=== PATIENT | male | born 1945 | race Caucasian/White ===

== ENCOUNTER 2019-02-06 08:09 | Emergency (ER) | payer MEDICARE ==
[~2019-02-06] VITALS: Ht 177.8 cm; Wt 68.2 kg
[~2019-02-06 08:09] MED LIST: ASPI81TA44 PO; HYT1T PO; METF1000 PO; VERA240T PO
[2019-02-06 10:59] LABS: CLARITY,URINE TURBID (Clear); COLOR,URINE RED (Yellow); UA COLLECTION TYPE URINAL
[2019-02-06 11:06] LABS: RBC,URINE TNTC /HPF (0-2); WBC,URINE TNTC /HPF (0-4)
[2019-02-06 11:09] LABS: MUCUS STRANDS MODERATE /LPF (Neg); SQUAMOUS EPITHELIAL CELL,UR FEW /LPF (FEW); TRANSITIONAL EPI CELLS,URINE FEW /HPF
[2019-02-06 11:09] LABS: BASOPHILS % (AUTO) 0.1 % (0-1); EOSINOPHILS % (AUTO) 0.1 % (0-6); HEMATOCRIT 38.9 % (42.0-52.0); HEMOGLOBIN 13.2 g/dl (14.0-17.9); LYMPHOCYTES # (AUTO) 0.7 X10'3 (1.1-4.8); LYMPHOCYTES % (AUTO) 5.9 % (21-51); MEAN CORPUSCULAR HEMOGLOBIN 31.7 PG (27.0-31.0); MEAN CORPUSCULAR HGB CONC 33.8 g/dL (33.0-36.5); MEAN CORPUSCULAR VOLUME 93.7 FL (78-98); MEAN PLATELET VOLUME 9.1 FL (7.4-10.4); MONOCYTES % (AUTO) 8.4 % (2-12); NEUTROPHILS # (AUTO) 10.6 X10'3 (1.8-7.7); NEUTROPHILS % (AUTO) 85.5 % (42-75); PLATELET COUNT 147 X10'3 (140-440); RED BLOOD COUNT 4.15 X10'6 (4.70-6.10); RED CELL DISTRIBUTION WIDTH 16.2 % (11.5-14.5); WHITE BLOOD COUNT 12.4 X10'3 (4.5-11.0)
[2019-02-06 11:11] VITALS: BP 145/73
[2019-02-06 11:12] LABS: BACTERIA,URINE 1+ /HPF (Neg)
[2019-02-06 11:25] LABS: ALANINE AMINOTRANSFERASE 35 U/L (12-78); ALBUMIN 3.3 G/DL (3.4-5.0); ALKALINE PHOSPHATASE 96 IU/L (46-116); ANION GAP 7 (8-16); ASPARTATE AMINO TRANSFERASE 22 U/L (10-37); BILIRUBIN,TOTAL 0.7 MG/DL (0.1-1.0); BLOOD UREA NITROGEN 11 MG/DL (7-18); BUN/CREATININE RATIO 16.2 (5.4-32.0); CALCIUM 8.8 MG/DL (8.5-10.1); CHLORIDE 104 MMOL/L (99-107); CREATININE 0.68 MG/DL (0.60-1.10); GLUCOSE 186 MG/DL (70-104); POTASSIUM 3.3 MMOL/L (3.5-5.1); SODIUM 144 MMOL/L (135-145); TOTAL CARBON DIOXIDE 33.3 MMOL/L (24-32); TOTAL PROTEIN 6.5 G/DL (6.4-8.2); eGFR > 90 ML/MIN
--- NOTE | 2019-02-06 11:45 | NUR ---
Catheter and leg bag placed by Caty Styles RN
[2019-02-06] MEDS ORDERED: CEPH500C5 PO (12:07)
[2019-02-06] MEDS ORDERED: cephalexin 500mg capsule PO ONE (12:15)
== END 2019-02-06 12:20 | disposition home or self-care (01) ==
LOC: ER 08:10
DX: R33.9 Retention of urine, unspecified (principal); N39.0 Urinary tract infection, site not specified; R39.11 Hesitancy of micturition; I48.91 Unspecified atrial fibrillation; I10 Essential (primary) hypertension; E11.9 Type 2 diabetes mellitus without complications; F17.200 Nicotine dependence, unspecified, uncomplicated; Z88.2 Allergy status to sulfonamides; Z79.899 Other long term (current) drug therapy; Z79.82 Long term (current) use of aspirin
CPT/HCPCS: 36415; 51702; 80053; 81001; 85025; 87077; 87088; 87186; 99284

== ENCOUNTER 2021-05-25 07:34 | Emergency (ER) | payer MEDICARE ==
[~2021-05-25] VITALS: Ht 177.8 cm; Wt 63.6 kg
[2021-05-25] MEDS ORDERED: normal saline 1000ML IV soln IVB ONE (08:00)
[2021-05-25] MEDS ORDERED: FLO0.4C PO (08:50)
[2021-05-25] MEDS ORDERED: FINA5TAB11 PO (08:50)
[2021-05-25] MEDS ORDERED: LISI5TAB22 PO (08:50)
[2021-05-25] MEDS ORDERED: APIX5TAB3 PO (08:50)
[2021-05-25] MEDS ORDERED: ATEN-27 PO (08:50)
[2021-05-25] MEDS ORDERED: ATOR10TA87 PO (08:50)
[2021-05-25 08:57] LABS: CLARITY,URINE CLOUDY (Clear); COLOR,URINE YELLOW (Yellow); GLUCOSE, URINE NEGATIVE (Neg); KETONES,URINE NEGATIVE (Neg); LEUKOCYTE ESTERASE ,URINE SMALL (Neg); NITRITES, URINE POSITIVE (Neg); OCCULT BLOOD,URINE NEGATIVE (Neg); PH,URINE 5.5 (4.8-8.0); PROTEIN,URINE NEGATIVE (Neg); UROBILINOGEN,URINE 0.2 E.U/dL (0.2-1.0)
[2021-05-25 08:57] LABS: BASOPHILS % (AUTO) 0.5 % (0-1); EOSINOPHILS # (AUTO) 0.1 X10'3 (0-0.9); EOSINOPHILS % (AUTO) 1.5 % (0-6); HEMATOCRIT 39.2 % (42.0-52.0); LYMPHOCYTES % (AUTO) 12.2 % (21-51); MEAN CORPUSCULAR HEMOGLOBIN 31.1 PG (27.0-31.0); MEAN CORPUSCULAR HGB CONC 33.1 g/dL (33.0-36.5); MEAN CORPUSCULAR VOLUME 93.7 FL (78-98); MEAN PLATELET VOLUME 9.1 FL (7.4-10.4); MONOCYTES # (AUTO) 0.5 X10'3 (0-0.9); MONOCYTES % (AUTO) 6.6 % (2-12); NEUTROPHILS # (AUTO) 6.5 X10'3 (1.8-7.7); NEUTROPHILS % (AUTO) 79.2 % (42-75); PLATELET COUNT 175 X10'3 (140-440); RED BLOOD COUNT 4.18 X10'6 (4.70-6.10); RED CELL DISTRIBUTION WIDTH 14.2 % (11.5-14.5); WHITE BLOOD COUNT 8.2 X10'3 (4.5-11.0)
[2021-05-25 09:06] LABS: UA COLLECTION TYPE STRAIGHT CATH
[2021-05-25 09:25] LABS: BACTERIA,URINE 4+ /HPF (Neg); MUCUS STRANDS NONE SEEN /LPF (Neg); RBC,URINE NONE SEEN /HPF (0-2); SQUAMOUS EPITHELIAL CELL,UR FEW /LPF (FEW); WBC CLUMPS,URINE FEW /HPF (NEGATIVE); WBC,URINE 30-50 /HPF (0-4)
[2021-05-25 09:27] LABS: BILIRUBIN,TOTAL 0.4 MG/DL (0.1-1.0); BLOOD UREA NITROGEN 7 MG/DL (7-18); BUN/CREATININE RATIO 12.1 (5.4-32.0); CALCIUM 8.6 MG/DL (8.5-10.1); CREATININE 0.58 MG/DL (0.60-1.10); GLUCOSE 163 MG/DL (70-104); TOTAL CARBON DIOXIDE 27.4 MMOL/L (24-32); TOTAL PROTEIN 6.7 G/DL (6.4-8.2); eGFR > 90 ML/MIN
[2021-05-25 09:28] LABS: ALANINE AMINOTRANSFERASE 31 U/L (12-78); ALBUMIN 3.6 G/DL (3.4-5.0); ALBUMIN/GLOBULIN RATIO 1.2 (1.1-1.5); ALKALINE PHOSPHATASE 91 IU/L (46-116); ASPARTATE AMINO TRANSFERASE 22 U/L (10-37)
[2021-05-25 09:44] LABS: MAGNESIUM 1.9 MG/DL (1.5-2.4)
[2021-05-25] MEDS ORDERED: CefTRIAXone 2gm/D5W 50ml BAG 50 ML IV ONE (09:45)
[2021-05-25] MEDS ORDERED: CEPH-585 PO (10:00)
--- NOTE | 2021-05-25 10:02 | NUR ---
Patient had bowel movement in bedside commode; soft, nonformed stool, light brown in color.
[2021-05-25 10:28] VITALS: BP 164/83
[2021-05-25 14:27] LABS: POTASSIUM 3.8 MMOL/L (3.3-5.1)
== END 2021-05-25 10:29 | disposition home or self-care (01) ==
LOC: ER 07:35
DX: N39.0 Urinary tract infection, site not specified (principal); R42 Dizziness and giddiness; I48.91 Unspecified atrial fibrillation; E78.00 Pure hypercholesterolemia, unspecified; I10 Essential (primary) hypertension; E11.9 Type 2 diabetes mellitus without complications; F17.200 Nicotine dependence, unspecified, uncomplicated; Z88.2 Allergy status to sulfonamides; Z79.899 Other long term (current) drug therapy; Z79.01 Long term (current) use of anticoagulants
CPT/HCPCS: 36415; 71045; 80051; 80053; 81001; 83735; 83880; 84484; 85025; 87077; 87088; 87186; 93005; 96361; 96365; 99285; J0696; J7030

== ENCOUNTER 2021-06-02 18:04 | Inpatient (IN) | payer OTHER, MEDICARE ==
[~2021-06-02] VITALS: Ht 177.8 cm; Wt 63.6 kg
[~2021-06-02 18:04] MED LIST changes: +APIX5TAB3 PO; -ASPI81TA44 PO; +ATEN-27 PO; +ATOR10TA87 PO; +CEPH-585 PO; +FINA5TAB11 PO; +FLO0.4C PO; -HYT1T PO; +LISI5TAB22 PO; -VERA240T PO
[2021-06-02 19:17] LABS: BASOPHILS % (AUTO) 0.4 % (0-1); EOSINOPHILS # (AUTO) 0.1 X10'3 (0-0.9); EOSINOPHILS % (AUTO) 1.4 % (0-6); HEMATOCRIT 39.8 % (42.0-52.0); HEMOGLOBIN 13.2 g/dl (14.0-17.9); LYMPHOCYTES # (AUTO) 1.3 X10'3 (1.1-4.8); LYMPHOCYTES % (AUTO) 13.4 % (21-51); MEAN CORPUSCULAR HEMOGLOBIN 31.1 PG (27.0-31.0); MEAN CORPUSCULAR HGB CONC 33.1 g/dL (33.0-36.5); MEAN PLATELET VOLUME 9.2 FL (7.4-10.4); MONOCYTES # (AUTO) 0.7 X10'3 (0-0.9); NEUTROPHILS # (AUTO) 7.7 X10'3 (1.8-7.7); NEUTROPHILS % (AUTO) 77.8 % (42-75); PLATELET COUNT 170 X10'3 (140-440); RED BLOOD COUNT 4.24 X10'6 (4.70-6.10); RED CELL DISTRIBUTION WIDTH 14.4 % (11.5-14.5); WHITE BLOOD COUNT 9.9 X10'3 (4.5-11.0)
[2021-06-02 19:31] LABS: ALANINE AMINOTRANSFERASE 36 U/L (12-78); ALBUMIN/GLOBULIN RATIO 1.3 (1.1-1.5); ALKALINE PHOSPHATASE 92 IU/L (46-116); ANION GAP 8 (8-16); ASPARTATE AMINO TRANSFERASE 20 U/L (10-37); BILIRUBIN,TOTAL 0.3 MG/DL (0.1-1.0); BLOOD UREA NITROGEN 9 MG/DL (7-18); BUN/CREATININE RATIO 13.8 (5.4-32.0); CHLORIDE 108 MMOL/L (99-107); CREATININE 0.65 MG/DL (0.60-1.10); GLUCOSE 140 MG/DL (70-104); POTASSIUM 4.1 MMOL/L (3.5-5.1); SODIUM 144 MMOL/L (135-145); TOTAL CARBON DIOXIDE 28.5 MMOL/L (24-32); eGFR > 90 ML/MIN
[2021-06-02 21:58] LABS: APTT 27 SECONDS (22-32)
[2021-06-02 22:24] LABS: CLARITY,URINE CLEAR (Clear); COLOR,URINE YELLOW (Yellow); GLUCOSE, URINE NEGATIVE (Neg); KETONES,URINE NEGATIVE (Neg); LEUKOCYTE ESTERASE ,URINE NEGATIVE (Neg); NITRITES, URINE NEGATIVE (Neg); OCCULT BLOOD,URINE NEGATIVE (Neg); PH,URINE 5.5 (4.8-8.0); PROTEIN,URINE NEGATIVE (Neg); UROBILINOGEN,URINE 0.2 E.U/dL (0.2-1.0)
[2021-06-02 22:31] LABS: UA COLLECTION TYPE CLN CATCH MIDSTREAM
--- NOTE | 2021-06-03 02:05 | NUR ---
patient was observed straigtht cateheting himself
--- NOTE | 2021-06-03 02:05 | NUR ---
patient will be receiving a MRI in the am
[2021-06-03] MEDS ORDERED: acetaminophen 325mg tablet PO PRN ×2 (03:25)
[2021-06-03] MEDS ORDERED: morphine 2 MG/ML inj. syringe IV PRN (03:25)
[2021-06-03] MEDS ORDERED: HYDROcodone/acetaminophen 5mg/325mg tablet PO PRN (03:25)
[2021-06-03] MEDS ORDERED: diphenhydrAMINE 25mg capsule PO PRN (03:25)
[2021-06-03] MEDS ORDERED: mag hydrox/Alum hydrox/simeth 30ml oral suspension PO PRN (03:25)
[2021-06-03] MEDS ORDERED: diphenhydrAMINE 50 mg/ml inj IV PRN (03:25)
[2021-06-03] MEDS ORDERED: magnesium hydroxide 30ml (MOM) UD suspension PO PRN (03:25)
[2021-06-03] MEDS ORDERED: ondansetron 4mg rapidly disintigrating tab PO PRN (03:25)
[2021-06-03] MEDS ORDERED: acetaminophen 650mg rectal suppository RC PRN (03:25)
[2021-06-03] MEDS ORDERED: bisacodyl 10mg suppository rectal RC PRN (03:25)
[2021-06-03] MEDS ORDERED: ondansetron/PF 4mg/2ml inj IV PRN (03:25)
[2021-06-03] MEDS ORDERED: insulin Lispro (HumaLOG) vial - multi-dose SQ SCH (03:30)
[2021-06-03] MEDS ORDERED: dextrose 50%-water 50ml dispensing syringe IV PRN ×2 (03:30)
[2021-06-03] MEDS ORDERED: MESSAGE TO PHARMACY PO ONE (03:30)
[2021-06-03] MEDS ORDERED: glucagon, human recombinant 1mg kit SUBCUT PRN (03:30)
[2021-06-03] MEDS ORDERED: DEXTROSE 15 GM of carb/4 tabs (each vial/BOTTLE has 4 tablets) PO PRN ×2 (03:30)
[2021-06-03] MEDS: normal saline 1000ml 1,000 ML IV SCH ×2 (03:57→13:25)
[2021-06-03 04:09] LABS: HEMOGLOBIN A1C 7.7 % (4.5-6.2)
[2021-06-03 04:11] LABS: ETHANOL < 0.010 GM/DL (0.0-0.010); MAGNESIUM 1.9 MG/DL (1.5-2.4); PHOSPHORUS 3.5 MG/DL (2.3-4.5)
[2021-06-03 04:12] LABS: APTT 28 SECONDS (22-32)
--- NOTE | 2021-06-03 04:56 | NUR ---
PATIENT STRIGHT MICHELLE PENA MD MADE AWARE . HE STATES THATS "FINE"
[2021-06-03 04:57] LABS: URINE AMPHETAMINE SCREEN NEGATIVE (Neg); URINE BARBITUATE SCREEN NEGATIVE (Neg); URINE BENZODIAZEPINES SCREEN NEGATIVE (Neg); URINE CANNABINOID SCREEN NEGATIVE (Neg); URINE COCAINE SCREEN NEGATIVE (Neg); URINE METHADONE SCREEN NEGATIVE (Neg); URINE OPIATE SCREEN NEGATIVE (Neg); URINE PHENCYCLIDINE SCREEN NEGATIVE (Neg)
--- NOTE | 2021-06-03 04:58 | NUR ---
URINE SENT TO THE LAB
--- NOTE | 2021-06-03 06:27 | NUR ---
Pt sleeping, no apparent distress or needs at this time.
--- NOTE | 2021-06-03 07:54 | NUR ---
Large UA with BM this AM
[2021-06-03] MEDS: docusate sod 100mg capsule PO SCH ×2 (08:00→20:00)
[2021-06-03] MEDS: pantoprazole 40mg Tablet.DR PO SCH (08:11)
[2021-06-03] MEDS ORDERED: LOPE2CAP PO (08:17)
--- NOTE | 2021-06-03 08:18 | NUR ---
Colonscopy scheduled for Wednesday at 1pm- on medications to clean him out. Pt has diarrhea this morning
--- NOTE | 2021-06-03 08:23 | NUR ---
Breakfast at bedside.
--- NOTE | 2021-06-03 09:15 | NUR ---
Pt prepared for MRI- dentures in place (will remove on arrival), R ankle hardware. Changed into gown, blankets provided. Consent signed.
--- NOTE | 2021-06-03 09:19 | NUR ---
Faxed consent to MRI
[2021-06-03 11:00] VITALS: BP 181/87
--- NOTE | 2021-06-03 14:40 | NUR ---
Diabetes consult: Noted pt w/ hx of DM A1c 7.7. Written DM ed w/ RD contact information placed in pt chart Addendum: 06/03/21 at [address] Amended: Links added.
[2021-06-03 15:00] VITALS: BP 136/73
[2021-06-03] MEDS ORDERED: LIDOcaine 2% 10ml TOPICAL JELLY (Urojet) TP ONE (15:20)
--- NOTE | 2021-06-03 18:39 | NUR ---
Patient in room PCU 3017. I have received report from Lacy GIBSON and had the opportunity to ask questions and assume patient care.
[2021-06-03 19:00] VITALS: BP 166/70
[2021-06-03] MEDS ORDERED: temazepam 15mg capsule PO PRN (21:00)
[2021-06-03] MEDS: insulin glargine (Lantus) pen - multi-dose SQ SCH (21:00)
[2021-06-03 22:00] VITALS: BP 103/73
[2021-06-04] VITALS (10 sets, daily range): BP systolic 58–155; BP diastolic 53–85
--- NOTE | 2021-06-04 06:43 | NUR ---
Problems reprioritized. Patient report given, questions answered & plan of care reviewed with Kervin GIBSON.
[2021-06-04 07:10] LABS: BASOPHILS % (AUTO) 0.5 % (0-1); EOSINOPHILS # (AUTO) 0.2 X10'3 (0-0.9); EOSINOPHILS % (AUTO) 3.3 % (0-6); HEMATOCRIT 37.8 % (42.0-52.0); HEMOGLOBIN 12.6 g/dl (14.0-17.9); LYMPHOCYTES # (AUTO) 1.7 X10'3 (1.1-4.8); LYMPHOCYTES % (AUTO) 24.1 % (21-51); MEAN CORPUSCULAR HEMOGLOBIN 30.8 PG (27.0-31.0); MEAN CORPUSCULAR HGB CONC 33.3 g/dL (33.0-36.5); MEAN CORPUSCULAR VOLUME 92.7 FL (78-98); MEAN PLATELET VOLUME 9.6 FL (7.4-10.4); MONOCYTES # (AUTO) 0.6 X10'3 (0-0.9); MONOCYTES % (AUTO) 8.9 % (2-12); NEUTROPHILS # (AUTO) 4.4 X10'3 (1.8-7.7); NEUTROPHILS % (AUTO) 63.2 % (42-75); PLATELET COUNT 150 X10'3 (140-440); RED BLOOD COUNT 4.08 X10'6 (4.70-6.10); RED CELL DISTRIBUTION WIDTH 14.3 % (11.5-14.5)
[2021-06-04 07:45] LABS: ALANINE AMINOTRANSFERASE 30 U/L (12-78); ALBUMIN 3.2 G/DL (3.4-5.0); ALBUMIN/GLOBULIN RATIO 1.2 (1.1-1.5); ALKALINE PHOSPHATASE 76 IU/L (46-116); ANION GAP 9 (8-16); ASPARTATE AMINO TRANSFERASE 30 U/L (10-37); BILIRUBIN,TOTAL 0.5 MG/DL (0.1-1.0); BLOOD UREA NITROGEN 7 MG/DL (7-18); BUN/CREATININE RATIO 10.8 (5.4-32.0); CALCIUM 8.6 MG/DL (8.5-10.1); CHLORIDE 109 MMOL/L (99-107); CHOL/HDL RATIO 2.3 (0.00-4.99); CHOLESTEROL 84 MG/DL (0-200); CREATININE 0.65 MG/DL (0.60-1.10); GLUCOSE 131 MG/DL (70-104); HDL CHOLESTEROL 36 MG/DL (35-60); LDL CHOLESTEROL 36 MG/DL (50-100); POTASSIUM 3.5 MMOL/L (3.5-5.1); SODIUM 146 MMOL/L (135-145); TOTAL CARBON DIOXIDE 27.6 MMOL/L (24-32); TOTAL PROTEIN 5.9 G/DL (6.4-8.2); TRIGLYCERIDES 48 MG/DL (20-135); eGFR > 90 ML/MIN
[2021-06-04] MEDS: normal saline 1000ml 1,000 ML IV SCH ×3 (08:44→19:50)
[2021-06-04] MEDS: docusate sod 100mg capsule PO SCH ×2 (08:44→19:57)
[2021-06-04] MEDS: pantoprazole 40mg Tablet.DR PO SCH (08:44)
[2021-06-04] MEDS ORDERED: finasteride 5mg tablet PO SCH (11:43)
--- NOTE | 2021-06-04 12:30 | NUR ---
DEION HALLMAN, ORTHOSTATIC VITALS SUPINE. 146/72 HR 62. STANDING 155/73 HR58 SITTING 149/77 HR63.
[2021-06-04] MEDS: apixaban 5mg tablet PO SCH ×2 (13:03→19:48)
[2021-06-04] MEDS: atorvastatin 10mg tablet PO SCH (13:04)
[2021-06-04] MEDS: atenolol 25mg tablet PO SCH (13:05)
[2021-06-04] MEDS: lisinopril 5mg tablet PO SCH (13:06)
[2021-06-04] MEDS: insulin glargine (Lantus) pen - multi-dose SQ SCH (21:00)
[2021-06-05] VITALS (7 sets, daily range): BP systolic 124–172; BP diastolic 60–79
[2021-06-05] MEDS ORDERED: atropine 0.1mg/ml 10ml syringe IV ONE (03:15)
--- NOTE | 2021-06-05 03:35 | NUR ---
Pt heart rate was fluctuating between 40 and 25 for more than an hour. Pt was asymptomatic.States he felt okay. Dr Lee was notified and Atropine 1mg IV was ordered and administered. Heart rate went up to 75 within few minutes of administration.No distress noted in pt. Will continue to monitor for any new changes.
[2021-06-05] MEDS: normal saline 1000ml 1,000 ML IV SCH ×2 (05:19→15:57)
[2021-06-05 06:09] LABS: BASOPHILS % (AUTO) 0.6 % (0-1); EOSINOPHILS # (AUTO) 0.2 X10'3 (0-0.9); EOSINOPHILS % (AUTO) 2.9 % (0-6); HEMATOCRIT 36.4 % (42.0-52.0); HEMOGLOBIN 12.3 g/dl (14.0-17.9); LYMPHOCYTES # (AUTO) 1.4 X10'3 (1.1-4.8); LYMPHOCYTES % (AUTO) 20.9 % (21-51); MEAN CORPUSCULAR HEMOGLOBIN 31.2 PG (27.0-31.0); MEAN CORPUSCULAR HGB CONC 33.7 g/dL (33.0-36.5); MEAN CORPUSCULAR VOLUME 92.7 FL (78-98); MEAN PLATELET VOLUME 9.2 FL (7.4-10.4); MONOCYTES # (AUTO) 0.6 X10'3 (0-0.9); MONOCYTES % (AUTO) 8.8 % (2-12); NEUTROPHILS # (AUTO) 4.4 X10'3 (1.8-7.7); NEUTROPHILS % (AUTO) 66.8 % (42-75); PLATELET COUNT 139 X10'3 (140-440); RED BLOOD COUNT 3.93 X10'6 (4.70-6.10); RED CELL DISTRIBUTION WIDTH 14.2 % (11.5-14.5); WHITE BLOOD COUNT 6.6 X10'3 (4.5-11.0)
[2021-06-05 06:43] LABS: ALANINE AMINOTRANSFERASE 40 U/L (12-78); ALBUMIN/GLOBULIN RATIO 1.1 (1.1-1.5); ALKALINE PHOSPHATASE 71 IU/L (46-116); ANION GAP 12 (8-16); ASPARTATE AMINO TRANSFERASE 37 U/L (10-37); BILIRUBIN,TOTAL 0.5 MG/DL (0.1-1.0); BLOOD UREA NITROGEN 8 MG/DL (7-18); BUN/CREATININE RATIO 11.8 (5.4-32.0); CALCIUM 8.2 MG/DL (8.5-10.1); CHLORIDE 110 MMOL/L (99-107); CREATININE 0.68 MG/DL (0.60-1.10); GLUCOSE 139 MG/DL (70-104); POTASSIUM 3.3 MMOL/L (3.5-5.1); SODIUM 147 MMOL/L (135-145); TOTAL CARBON DIOXIDE 25.2 MMOL/L (24-32); TOTAL PROTEIN 5.7 G/DL (6.4-8.2); eGFR > 90 ML/MIN
--- NOTE | 2021-06-05 06:56 | NUR ---
DM consult: Addressed in previous RD assessment Addendum: 06/05/21 at [address] Amended: Links added.
[2021-06-05] MEDS: lisinopril 5mg tablet PO SCH (08:00)
[2021-06-05] MEDS: atenolol 25mg tablet PO SCH (08:00)
[2021-06-05] MEDS: docusate sod 100mg capsule PO SCH ×2 (08:03→19:42)
[2021-06-05] MEDS: atorvastatin 10mg tablet PO SCH (08:03)
[2021-06-05] MEDS: pantoprazole 40mg Tablet.DR PO SCH (08:03)
[2021-06-05] MEDS: apixaban 5mg tablet PO SCH (08:03)
[2021-06-05] MEDS ORDERED: potassium CL 10mEq/100ml bag 100 ML IV PRN (13:00)
[2021-06-05] MEDS ORDERED: magnesium 2GM in 50ml NS 50 ML IV PRN (13:00)
[2021-06-05] MEDS ORDERED: magnesium Cl slow-release 64mg tablet PO PRN (13:00)
[2021-06-05] MEDS ORDERED: potassium Cl 20 mEq SR tablet PO PRN (13:00)
[2021-06-05] MEDS ORDERED: magnesium 4gm in 100ml NS 100 ML IV PRN (13:00)
[2021-06-05] MEDS: K and/or MAG REPLACEMENT MC SCH ×2 (13:08→21:37)
[2021-06-05] MEDS: potassium Cl 20 mEq SR tablet PO PRN ×2 (13:31→17:59)
--- NOTE | 2021-06-05 18:25 | NUR ---
Received report from PAIGE Galeana. Patient sitting at edge of bed in no apparent distress. Patient ambulated 300ft with me monitoring his heart rate. Heart rate while walking was 89-93, went down to 75 at rest after walk.
--- NOTE | 2021-06-05 18:56 | NUR ---
I have received report from PAIGE Galeana and had the opportunity to ask questions and assume patient care.
[2021-06-05] MEDS: insulin glargine (Lantus) pen - multi-dose SQ SCH (21:00)
[2021-06-06 03:14] VITALS: BP 148/68
[2021-06-06 06:00] VITALS: BP 146/67
--- NOTE | 2021-06-06 06:12 | NUR ---
I agree with JANE Gibson student assessments, documentation, and report given to PAIGE Galeana
--- NOTE | 2021-06-06 06:14 | NUR ---
Patient report given, questions answered & plan of care reviewed with PAIGE Galeana.
[2021-06-06 06:20] LABS: BASOPHILS % (AUTO) 0.4 % (0-1); EOSINOPHILS # (AUTO) 0.3 X10'3 (0-0.9); EOSINOPHILS % (AUTO) 3.9 % (0-6); HEMOGLOBIN 12.4 g/dl (14.0-17.9); LYMPHOCYTES # (AUTO) 1.1 X10'3 (1.1-4.8); LYMPHOCYTES % (AUTO) 12.9 % (21-51); MEAN CORPUSCULAR HGB CONC 33.6 g/dL (33.0-36.5); MEAN CORPUSCULAR VOLUME 92.3 FL (78-98); MEAN PLATELET VOLUME 9.7 FL (7.4-10.4); MONOCYTES # (AUTO) 0.7 X10'3 (0-0.9); MONOCYTES % (AUTO) 8.2 % (2-12); NEUTROPHILS # (AUTO) 6.4 X10'3 (1.8-7.7); NEUTROPHILS % (AUTO) 74.6 % (42-75); PLATELET COUNT 135 X10'3 (140-440); WHITE BLOOD COUNT 8.6 X10'3 (4.5-11.0)
[2021-06-06 06:35] LABS: ALANINE AMINOTRANSFERASE 44 U/L (12-78); ALBUMIN 3.1 G/DL (3.4-5.0); ALBUMIN/GLOBULIN RATIO 1.2 (1.1-1.5); ALKALINE PHOSPHATASE 75 IU/L (46-116); ANION GAP 10 (8-16); ASPARTATE AMINO TRANSFERASE 37 U/L (10-37); BILIRUBIN,TOTAL 0.5 MG/DL (0.1-1.0); BLOOD UREA NITROGEN 8 MG/DL (7-18); BUN/CREATININE RATIO 11.8 (5.4-32.0); CALCIUM 8.2 MG/DL (8.5-10.1); CHLORIDE 110 MMOL/L (99-107); CREATININE 0.68 MG/DL (0.60-1.10); GLUCOSE 144 MG/DL (70-104); MAGNESIUM 1.9 MG/DL (1.5-2.4); POTASSIUM 3.6 MMOL/L (3.5-5.1); SODIUM 145 MMOL/L (135-145); TOTAL CARBON DIOXIDE 24.7 MMOL/L (24-32); TOTAL PROTEIN 5.7 G/DL (6.4-8.2); eGFR > 90 ML/MIN
[2021-06-06] MEDS: pantoprazole 40mg Tablet.DR PO SCH (07:53)
[2021-06-06] MEDS: docusate sod 100mg capsule PO SCH (07:54)
[2021-06-06] MEDS: atorvastatin 10mg tablet PO SCH (07:54)
[2021-06-06] MEDS: K and/or MAG REPLACEMENT MC SCH (07:54)
[2021-06-06] MEDS: lisinopril 5mg tablet PO SCH (07:54)
[2021-06-06 08:00] VITALS: BP_SYST 138; BP_SYST 140; BP_DIAS 62; BP_DIAS 74
[2021-06-06 08:05] VITALS: BP 128/63
[2021-06-06 11:00] VITALS: BP 146/68
[2021-06-06] MEDS ORDERED: CYAN1TAB41 PO (11:23)
== END 2021-06-06 17:09 | disposition home or self-care (01) | DRG 149 ==
LOC: ER 18:04 → UNDOADMIN 06-03 02:34 → ED HOLD 06-03 02:34 → PCU 3S 06-03 10:42 → ED HOLD 06-03 10:42 → PCU 3S 06-03 21:30
PROVIDERS: ADMIT Family Medicine; ATTEND Family Medicine
DX: R42 Dizziness and giddiness (principal); E87.0 Hyperosmolality and hypernatremia; I48.20 Chronic atrial fibrillation, unspecified; R00.1 Bradycardia, unspecified; I10 Essential (primary) hypertension; E11.9 Type 2 diabetes mellitus without complications; E78.00 Pure hypercholesterolemia, unspecified; E78.5 Hyperlipidemia, unspecified; E87.6 Hypokalemia; R26.0 Ataxic gait; F17.210 Nicotine dependence, cigarettes, uncomplicated; I65.23 Occlusion and stenosis of bilateral carotid arteries; N40.0 Benign prostatic hyperplasia without lower urinary tract symptoms; Z79.84 Long term (current) use of oral hypoglycemic drugs; Z85.828 Personal history of other malignant neoplasm of skin; Z98.1 Arthrodesis status; Z88.2 Allergy status to sulfonamides; Z79.899 Other long term (current) drug therapy; Z71.6 Tobacco abuse counseling
CPT/HCPCS: 36415; 70450; 70544; 70551; 71045; 80053; 80061; 80305; 80320; 81003; 82948; 83036; 83735; 83880; 84100; 84484; 85025; 85610; 85730; 87081; 92508; 92616; 93005; 93306; 93880; 97034; 97116; 97161; 97530; 99285; G0378; J0461; J1815; J7030

== ENCOUNTER 2024-02-23 21:49 | Emergency (ER) | payer OTHER, MEDICARE ==
[~2024-02-23] VITALS: Ht 177.8 cm; Wt 55.9 kg
[~2024-02-23 21:49] MED LIST changes: -ATEN-27 PO; -CEPH-585 PO; +CYAN1TAB41 PO; +LOPE2CAP PO
[2024-02-23 21:56] VITALS: PULSE 90
[2024-02-23] MEDS: LidoCAINE 2% Topical Jelly 11mL syringe (UROJET) TOP ONE (22:21)
[2024-02-24 00:37] VITALS: BP 119/68; RESP 18; TEMP 98.2; O2SAT 95
== END 2024-02-24 00:39 | disposition home or self-care (01) ==
LOC: ER 21:50
DX: T83.83XA Hemorrhage due to genitourinary prosthetic devices, implants and grafts, initial encounter (principal); I48.91 Unspecified atrial fibrillation; E78.00 Pure hypercholesterolemia, unspecified; I10 Essential (primary) hypertension; E11.9 Type 2 diabetes mellitus without complications; Z88.2 Allergy status to sulfonamides; Y92.89 Other specified places as the place of occurrence of the external cause; Y84.6 Urinary catheterization as the cause of abnormal reaction of the patient, or of later complication, without mention of misadventure at the time of the procedure
CPT/HCPCS: 51702; 99284; A4314; A4338; A4340

== ENCOUNTER 2025-01-27 11:45 | Emergency (ER) | payer OTHER, MEDICARE ==
[~2025-01-27] VITALS: Ht 177.8 cm; Wt 58.4 kg
[2025-01-27 11:53] VITALS: TEMP 97.8
--- NOTE | 2025-01-27 11:59 | ELECTROCARDIOGRAPH REPORT ---
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 SANTA Bustamante Measurements Intervals Schneider Rate: 90 P: 0 PA: 0 QRS: 77 QRSD: 74 T: 66 QT: 370 QTc: 453 Interpretive Statements Atrial fibrillation Low voltage, extremity leads Electronically Signed On 01-30-2025 18:04:[address] SANTA Bustamante Please click the below link to view image of tracing.
[2025-01-27] MEDS: normal saline 1000ml 1,000 ML IV ONE (12:18)
[2025-01-27 12:23] LABS: MEAN PLATELET VOLUME 8.3 FL (7.4-10.4); RED CELL DISTRIBUTION WIDTH 14.1 % (11.5-14.5)
[2025-01-27 12:35] LABS: LEUKOCYTE ESTERASE ,URINE TRACE (Neg); OCCULT BLOOD,URINE LARGE (Neg)
[2025-01-27 12:39] LABS: CREATININE 0.62 MG/DL (0.60-1.10); TOTAL CARBON DIOXIDE 27.2 MMOL/L (24-32); eCRCL 77 ML/MIN; eGFR > 90 ML/MIN
[2025-01-27 12:43] LABS: NITRITES, URINE NEGATIVE (Neg); UA COLLECTION TYPE FOLEY CATH
[2025-01-27 12:49] LABS: SQUAMOUS EPITHELIAL CELL,UR FEW /LPF (FEW)
[2025-01-27 12:50] LABS: TRIPLE PHOSPHATE CRYST 1+ /HPF (NEGATIVE)
[2025-01-27 12:52] LABS: AMORPHOUS PHOSPHATES 4+
--- NOTE | 2025-01-27 12:53 | RADIOLOGY REPORT ---
EXAM: DI CHEST,SINGLE VIEW CLINICAL HISTORY: hypotension TECHNIQUE: Single AP view of the chest WID: COMPARISON: DI CHEST,SINGLE VIEW on DOS: 06/21/23 FINDINGS: Lines and tubes: None Chest: The heart size and pulmonary vasculature is within normal limits. Calcified plaque projects over the aortic arch. No pleural effusion, pneumothorax, or consolidation. The osseous structures are grossly intact. IMPRESSION: 1. No acute cardiopulmonary abnormality.
[2025-01-27] MEDS: CefTRIAXone/D5W-Rocephin 1gm 50 ML IV ONE (13:28)
--- NOTE | 2025-01-27 13:39 | Physician Documentation ---
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 He has been to our ER before for similar symptoms and is on a DOAC for atrial fibrillation. He changes his own catheter and is wheelchair bound, lives at home with is . He denies fevers, abdominal pain, chest pain, cough, and shortness of breath. Medication Reconciliation Allergies: Coded Allergies: Sulfa (Sulfonamide Antibiotics) (Unverified Allergy, Severe, hives, 11/07/24) Scheduled Apixaban (Eliquis), 1 TAB PO Q12H, (Reported) Atorvastatin Calcium* (Lipitor*), 1 TABLET PO DAILY, (Reported) Cyanocobalamin/Folic Acid (Vitamin G85-Rrbbr Acid Tablet), 1 TAB PO DAILY Finasteride (Finasteride), 1 TAB PO DAILY, (Reported) Levofloxacin (Levofloxacin), 1 TAB PO DAILY Lisinopril (Lisinopril), 1 TAB PO DAILY, (Reported) Metformin Hcl* (Glucophage*), 1 TAB PO BID, (Reported) Scheduled PRN Loperamide Hcl (Loperamide), 2 MG PO TID PRN for diarrhea Miscellaneous Medications Tamsulosin Hcl (Flomax), 0.4 MG PO, (Reported) Past Medical History Past Medical History: Atrial Fibrillation, High Cholesterol, Hypertension, Diabetes Past Surgical History: no surgical history Smoking Status: Current every day smoker Alcohol Use: None Drug Use: none Lives with: Spouse Review of Systems All Other Systems at this time: Reviewed and Negative Physical Exam Vital Signs: RN Vital Signs have been reviewed: Yes, Temperature: 97.8, Source: Oral, Heart Rate: 101, Respiratory Rate: 16, BP: 97/35, Pulse Oximetry: 93, Weight: 58.400 Physical Exam Gen: no distress HEENT: NCAT, EOMI, PERRL, MMM Pulm: no distress Cardiac: deferred Abdomen: deferred MSK: no deformity Neuro: nonfocal Skin: w/d/i Psych: unremarkable Progress Results/Orders Results/Orders Orders - REA CLAYTON MD Chest,Single View (01/27/25 12:28) Cult Urine + [address] (01/27/25 12:52) Lactic,2hr (01/27/25 13:32) Completed Orders - REA CLAYTON MD Cbc/Diff (01/27/25 11:56) CMP (01/27/25 11:56) Lacticsepsis (01/27/25 11:57) Normal Saline 1000ml (0.9% Sodium Chlori (01/27/25 12:00) Electrocardiogram (01/27/25 ) Chest,Single View (01/27/25 12:28) Ceftriaxone/B3o-Bzplewwg 1gm (Rocephin 1 (01/27/25 12:45) Ua W/Microscopic, Cult If Ind (01/27/25 12:20) Levofloxacin Tablet (Levaquin Tablet) (01/27/25 13:55) Levofloxacin Tablet (Levaquin Tablet) (01/28/25 08:00) Medications Received in ER Medications (Trade) Dose Ordered Sig/Stephanie Route PRN Reason Start Time Stop Time Status Last Admin Dose Admin Sodium Chloride 1,000 ml @ 1,000 mls/hr ONCE ONCE IV 01/27/25 12:00 01/27/25 12:59 DC 01/27/25 12:18 1,000 MLS/HR Ceftriaxone Sodium 50 ml @ 100 mls/hr ONCE ONCE IV 01/27/25 12:45 01/27/25 13:14 DC 01/27/25 13:28 100 MLS/HR (Levaquin tablet) 500 mg ONCE ONCE PO 01/27/25 13:55 01/27/25 13:56 DC 01/27/25 14:20 500 MG (Levaquin tablet) 500 mg DAILY ONCE PO 01/28/25 08:00 01/27/25 14:38 DC 01/27/25 14:21 500 MG Vital Signs 01/27/25 01/27/25 01/27/25 01/27/25 11:53 12:03 12:28 14:33 Temp 97.8 Pulse 84 101 93 Resp 13 15 16 13 B/P (MAP) 84/50 97/35 (55) 114/48 Pulse Ox 96 93 93 Laboratory Tests Test 01/27/25 12:06 01/27/25 12:20 White Blood Count 11.8 H Red Blood Count 3.25 L Hemoglobin 10.4 L Hematocrit 30.4 L Mean Corpuscular Volume 93.7 Mean Corpuscular Hemoglobin 31.9 H Mean Corpuscular Hemoglobin Concent 34.1 Red Cell Distribution Width 14.1 Platelet Count 196 Mean Platelet Volume 8.3 Neutrophils (%) (Auto) 88.7 H Lymphocytes (%) (Auto) 4.7 L Monocytes (%) (Auto) 6.6 Eosinophils (%) (Auto) 0 Basophils (%) (Auto) 0 Neutrophils # (Auto) 10.5 H Lymphocytes # (Auto) 0.6 L Monocytes # (Auto) 0.8 Eosinophils # (Auto) 0.0 Basophils # (Auto) 0.0 CBC Comment Sodium Level 129 L Potassium Level 5.1 Chloride Level 96 L Carbon Dioxide Level 27.2 Anion Gap 6 L Blood Urea Nitrogen 11 Creatinine 0.62 Estimated GFR/1.73 m2 > 90 BUN/Creatinine Ratio 17.7 Glucose Level 92 Lactic Acid Level 2.6 H Calcium Level 7.8 L Total Bilirubin 0.6 Aspartate Amino Transf (AST/SGOT) 72 H Alanine Aminotransferase (ALT/SGPT) 72 Alkaline Phosphatase 149 H Total Protein 5.3 L Albumin 2.1 L Globulin 3.2 Albumin/Globulin Ratio 0.7 L Chemistry Comments Urine Specimen Description Mireles cath Urine Color Yellow Urine Clarity Cloudy Urine pH 8.5 Urine Specific [place] 1.010 Urine Protein 30 H Urine Glucose (UA) Negative Urine Ketones Trace H Urine Occult Blood Large H Urine Nitrite Negative Urine Bilirubin Small Urine Urobilinogen 0.2 Urine Leukocyte Esterase Trace H Urine RBC Tntc Urine WBC 10-20 H Urine Squamous Epithelial Cells Few Urine Triple Phosphate Crystals 1+ Urine Amorphous Phosphates 4+ Urine Bacteria 4+ Urine Culture Indicated Indicated Volume Urine Centrifuged 10 ml Urine Comment Microbiology Date/Time Source Procedure Growth Status 01/27/25 12:52 Urine Mireles Cath Urine Culture - Preliminary Culture received. Resulted Medical Decision Making Additional information obtaine: N/A Findings 79 year old male with history of UTIs and hematuria presents with similar symptoms today. Noted hypotension and elevated WBC, met sepsis criteria and IVF and ABx provided, noted initial elevated lactate. I attempted to admit the patient but he flatly refused, stating he would like to go home despite a thorough discussion of the risks of leaving. His blood pressure improved after one liter of normal saline and I will discharge him AMA with ABx. Urinary Diff Dx:Considerations: Include: Other Genital Diff Dx:Considerations: Include: Other Departure Disposition: 07 LEFT AGAINST MEDICAL ADVICE Impression: Primary Impression: UTI (urinary tract infection) Additional Impression: Sepsis Condition: Stable Discharge Instructions: Urinary Tract Infection, Adult Referrals: NO PRIMARY CARE PROVIDER (PCP) Prescriptions Levofloxacin (Levofloxacin) 500 Mg Tablet 1 TAB PO DAILY for 7 Days, #7 TAB Prov: REA CLAYTON MD 01/27/25 Education Educated: Patient Educated regarding: diagnosis, treatment, prognosis, need for follow up Signature Scribe Signature: . Attestation: . REA CLAYTON MD Jan 27, 2025 13:39
[2025-01-27] MEDS ORDERED: LEVO-65 PO (13:40)
[2025-01-27 14:33] VITALS: BP 114/48; PULSE 93; RESP 13; O2SAT 93
== END 2025-01-27 14:32 | disposition left against medical advice (07) ==
LOC: ER 11:45
DX: N39.0 Urinary tract infection, site not specified (principal); A41.9 Sepsis, unspecified organism; E11.9 Type 2 diabetes mellitus without complications; E78.00 Pure hypercholesterolemia, unspecified; F17.200 Nicotine dependence, unspecified, uncomplicated; I10 Essential (primary) hypertension; I48.91 Unspecified atrial fibrillation; Z88.2 Allergy status to sulfonamides; Z79.899 Other long term (current) drug therapy
CPT/HCPCS: 36415; 71045; 80053; 81001; 83605; 85025; 87077; 87088; 87186; 93005; 96361; 96365; 99285; J0696; J7030